=== PATIENT | male | born 1940 | race Caucasian/White ===

== ENCOUNTER 2016-05-28 20:52 | Emergency (ER) | payer MEDICARE, OTHER ==
[~2016-05-28] VITALS: Ht 188 cm; Wt 77.1 kg
[2016-05-28 20:52] VITALS: BP 83/29
[2016-05-28] MEDS ORDERED: ATROPINE 0.5 MG/5 ML DISP.SYRIN. ONE (21:00)
[2016-05-28] MEDS ORDERED: SODIUM BICARB ADULT 8.4% 50 MEQ/50 ML DISP.SYRIN. ONE (21:00)
[2016-05-28] MEDS ORDERED: EPINEPHRINE 1 MG/10 ML DISP.SYRIN. ONE (21:00)
[2016-05-28] MEDS ORDERED: 1/2 NORMAL SALINE ONE (21:00)
[2016-05-28] MEDS: IV NORMAL SALINE 1,000ML 1,000 ML IV ONE ×2 (21:05→21:15)
[2016-05-28] MEDS: CEFTRIAXONE SODIUM 1 GM in IV NORMAL SALINE 50ML 50 ML IV ONE (21:30)
[2016-05-28 21:46] LABS: ALBUMIN 2.4 g/dL (3.4-5.0); ALBUMIN/GLOBULIN RATIO 0.7 (1.0-1.7); CALCIUM 8.9 mg/dL (8.5-10.1); CREATININE 1.5 mg/dL (0.7-1.3); GFR 45.5; TOTAL BILIRUBIN 0.5 mg/dL (0.2-1.0); TOTAL PROTEIN 5.9 g/dL (6.4-8.2)
[2016-05-28 21:52] LABS: BASO % 1 % (0-3); EOS # 0.1 x10^3/uL (0.0-0.7); EOS % 2 % (0-3); HEMATOCRIT 44.5 % (39.0-53.0); HEMOGLOBIN 12.5 g/dL (13.0-17.5); LYMPH # 4.8 x10^3/uL (1.0-4.8); LYMPH % 56 % (24-48); MEAN CORPUSCULAR HEMOGLOBIN 31 pg (25-35); MEAN CORPUSCULAR HGB CONC 28 g/dL (31-37); MEAN CORPUSCULAR VOLUME 110 fL (79-100); MONO # 0.6 x10^3/uL (0.0-1.1); MONO % 7 % (0-9); NEUT % 35 % (31-73); PLATELET COUNT 83 x10^3/uL (140-400); RED BLOOD COUNT 4.05 x10^6/uL (4.30-5.70); RED CELL DISTRIBUTION WIDTH 15.2 % (11.5-14.5); WHITE BLOOD COUNT 8.6 x10^3/uL (4.0-11.0)
[2016-05-28 21:53] LABS: POTASSIUM 4.5 mmol/L (3.5-5.1)
[2016-05-28 22:02] LABS: AMPHETAMINE/METHAMPHETAMINE NEG (NEG); BARBITURATES NEG (NEG); BENZODIAZEPINES NEG (NEG); CANNABINOIDS NEG (NEG); COCAINE NEG (NEG); METHADONE NEG (NEG); OPIATES NEG (NEG); PHENCYCLIDINE NEG (NEG)
--- NOTE | 2016-05-28 22:17 | PHYS DOC ---
Adult General Chief Complaint Chief Complaint: CPR/FULL ARREST HPI HPI 76-year-old male with multiple medical problems presents after being found down. On arrival here via EMS patient had been in arrest for 30 minutes. Paramedics state that they gave multiple rounds of epinephrine and shocked V. fib at 200 J. There was return of spontaneous circulation just prior to arrival. While the patient was being wheeled in he lost his pulse and CPR was started by paramedics. The patient was intubated in route. Patient is unable to provide any history secondary to critical illness [] Review of Systems Review of Systems Review of systems is unobtainable secondary to critical illness Current Medications Current Medications Current Medications Medications (Trade) Dose Ordered Sig/Constantino Start Time Stop Time Status Last Admin Dose Admin Ceftriaxone Sodium/Sodium Chloride (Rocephin/Iv Sodium Chloride 0.9% 50ml) 50 ml @ 100 mls/hr 1X ONCE 05/28/16 21:30 05/28/16 21:59 DC Sodium Chloride 1,000 ml @ 1,000 mls/hr 1X ONCE 05/28/16 21:30 05/28/16 22:29 Allergies Allergies Allergies Coded Allergies Type Severity Reaction Last Updated Verified No Known Drug Allergies 10/24/13 No Physical Exam Physical Exam Constitutional: Critically ill HENT: Normocephalic, atraumatic, bilateral external ears normal, oropharynx moist, no oral exudates, nose normal. [] Eyes: PERRLA, EOMI, conjunctiva normal, no discharge. [] Neck: Normal range of motion, no tenderness, supple, no stridor. [] Cardiovascular: Bradycardic [] Lungs & Thorax: Bilateral breath sounds clear to auscultation [] Abdomen: Bowel sounds normal, soft, no tenderness, no masses, no pulsatile masses. [] Skin: Mottled. [] Back: No tenderness, no CVA tenderness. [] Extremities: No tenderness, no cyanosis, no clubbing, ROM intact, no edema. [] Neurologic: Obtunded. [] Psychologic: Unable to assess. [] Current Patient Data Lab Results Laboratory Tests Test 05/28/16 21:05 Sodium Level 145mmol/L (136-145) Potassium Level 4.5mmol/L (3.5-5.1) Chloride Level 106mmol/L (98-107) Carbon Dioxide Level 15mmol/L (21-32) L Anion Gap 24 (6-14) H Blood Urea Nitrogen 17mg/dL (8-26) Creatinine 1.5mg/dL (0.7-1.3) H Estimated GFR (Cockcroft-Gault) 45.5 BUN/Creatinine Ratio 11 (6-20) Glucose Level Pending Calcium Level 8.9mg/dL (8.5-10.1) Total Bilirubin 0.5mg/dL (0.2-1.0) Aspartate Amino Transferase (AST) 88U/L (15-37) H Alanine Aminotransferase (ALT) 75U/L (16-63) H Alkaline Phosphatase 76U/L (46-116) Troponin I Quantitative 0.552ng/mL (0-0.055) H AQ-Nvk-[id number]-Type Natriuretic Peptide 264pg/mL (0-449) Total Protein 5.9g/dL (6.4-8.2) L Albumin 2.4g/dL (3.4-5.0) L Albumin/Globulin Ratio 0.7 (1.0-1.7) L Lipase 579U/L (73-393) H Urine Opiates Screen Neg (NEG) Urine Methadone Screen Neg (NEG) Urine Barbiturates Neg (NEG) Urine Phencyclidine Screen Neg (NEG) Urine Amphetamine/Methamphetamine Neg (NEG) Urine Benzodiazepines Screen Neg (NEG) Urine Cocaine Screen Neg (NEG) Urine Cannabinoids Screen Neg (NEG) Ethyl Alcohol Level < 10mg/dL (0-10) Urine Ethyl Alcohol Pos (NEG) EKG EKG [] Radiology/Procedures Radiology/Procedures [] Impressions: Chest x-ray: ET tube appears to be in good position central venous line is in the superior vena cava Course & Med Decision Making Course & Med Decision Making Pertinent Labs and Imaging studies reviewed. (See chart for details) [ED course: Evaluation reveals a critically ill male on arrival chest compressions were being performed by the medic. Shortly after arrival it was noted that patient had another return of spontaneous circulation. He then had a bradycardic episode and was given another amp of epinephrine. A blood gas was performed which showed a pH is 6.5 and 2 A of sodium bicarbonate were given. Patient appeared gravely ill despite the fact that he had a pulse. In an attempt to improve his circulatory status 2 L of normal saline given. I did speak with the physician on-call at [facility] Dr. hernandez who agreed to accept the patient for admission. However, shortly after my discussion with Dr. hernandez the patient lost his pulse and was pronounced. I spoke with the family and explained the situation. Procedure: Central venous line insertion Re-: Critical illness The right subclavian area was prepped and draped in a sterile fashion. The subclavian vein was cannulated wire was passed without difficulty. Needle was removed skin was neck the area was dilated and the dilator was removed. Then using the Seldinger technique triple lumen central venous line was passed over the wire to 28 cm. The wire was removed. The central line was flushed [address]. Patient tolerated procedure well chest x-ray is as above CRITICAL CARE time was 30 minutes - time exclusive of any procedures performed. Care included medical management, x-ray/lab interpretation, discussions with the patient and their family as well as appropriate medical consultants.] Dragon Disclaimer Dragon Disclaimer This chart was dictated in whole or in part using Voice Recognition software in a busy, high-work load, and often noisy Emergency Department environment. It may contain unintended and wholly unrecognized errors or omissions. Departure Departure: Impression: Primary Impression: Cardiac arrest Disposition: 20 Condition: GRAVE Referrals: KOURTNEY CALIX MD (PCP) SAUL TA DO May 28, 2016 22:17
[2016-05-28 22:21] LABS: BILIRUBIN,URINE NEG (NEG); CLARITY,URINE CLOUDY; COLOR,URINE YELLOW; GLUCOSE,URINE NEG (NEG); NITRITE,URINE NEG (NEG); UROBILINOGEN,URINE 0.2 mg/dL (0.2 mg/dL)
[2016-05-28 22:22] LABS: BACTERIA,URINE MANY /HPF (0-FEW); SQUAMOUS EPITHELIAL CELL,UR FEW /LPF; WBC,URINE >40 /HPF (0-4)
[2016-05-28 22:45] LABS: % BANDS 1 % (0-9); % EOS 1 % (0-5); % LYMPHS 60 % (24-48); % MONOS 10 % (0-10); % MYELOS 1 % (0-0); % SEGS 27 % (35-66)
[2016-05-28 22:47] LABS: PLT ESTIMATE DECREASED (ADEQUATE)
[2016-05-29 01:18] LABS: BGAS PH 6.55 (7.35-7.46)
--- NOTE | 2016-05-29 07:34 | RAD ---
Indication: Postintubation. Patient found unresponsive. Technique: Supine portable chest radiograph was obtained. Comparison is from July 05, 2015. Findings: Endotracheal tube is in place, tip is 4 cm from the margaret. Right subclavian central line is in place. Leads and defibrillator pad overlie the patient. The heart is not enlarged. There is no heart failure. 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 The lungs are clear. The left costophrenic sulcus is clipped. Impression: Endotracheal tube and subclavian line are in position.
== END 2016-05-28 21:38 | disposition expired ==
LOC: ER 20:52
DX: I46.9 Cardiac arrest, cause unspecified (principal); R41.0 Disorientation, unspecified
CPT/HCPCS: 36415; 36556; 36600; 51702; 71010; 80053; 80305; 80320; 81001; 82803; 83605; 83690; 83880; 84484; 85007; 85027; 85610; 87040; 87086; 87186; 94002; 99291; J0171; J0461; J7030; 92950; 96360; G0480; G0481